=== PATIENT | male | born 2000 | race Caucasian/White ===

== ENCOUNTER 2023-08-09 09:33 | Day surgery (SDC) | payer OTHER, SELFPAY ==
[2023-08-09] VITALS (9 sets, daily range): BP systolic 136–163; BP diastolic 80–113; PULSE 59–95; RESP 18; TEMP 36.3–37.1; O2SAT 98–100; BMI 21.5
--- NOTE | 2023-08-09 09:45 | RAD_ITS ---
INDICATION: FX COMPARISON: None. FINDINGS: Multiple intraoperative fluoroscopic images of the proximal forearm Cumulative air kerma: 0.35 mGy RAD/Forearm 2 Views IMPRESSION: Fluoroscopic images submitted. See operative report for details. Electronically Signed: Michele Eastman MD at 6:40 EDT ,
[2023-08-09] MEDS: Lactated Ringers 1,000 ML 15 ML IV (10:07)
--- NOTE | 2023-08-09 10:44 | PCM.HP.STD ---
HPI - General HPI Narrative ALYCIA ARROYO, is a 22 M who presents for left ulna open reduction internal fixation. No changes to history and physical exam. Left forearm marked. Patient okay to proceed. Risks alternatives benefits postop plan as well as narcotic counseling given to the patient he understands. No further questions or concerns. MR#: [id number] Acct: [id number] Name: ALYCIA ARROYO Rep #: [id number] : 2000 Provider: Dr. Srikanth Rivers MD Age/Sex: 22/M Location: [facility] [place] Status: Signed Intake Vital Signs 08/06/2413:50 Height 5 ft 10 in Weight: 150 lb 2 oz BMI 21.5 Intake Visit Reasons: LEFT ARM Accompanied by: Self Is patient in pain?: Yes Pain scale (1-10): 5 Allergies No Known Allergies Allergy (Unverified 08/07/23 14:50) Medications acetaminophen 325 mg capsule 325 mg PO ONCE PRN 08/07/23 [History Confirmed 08/07/23] [facility] Medical History (Updated 08/07/23 @ 15:17 by Srikanth Rivers MD) Finger fracture, right Fracture of left proximal ulna Social History Smoking Status: Never smoker alcohol intake: never HPI LEFT ARM Details: This documentation accurately reflects the service provided and the decisions made by me, Dr. Srikanth Rivers MD 08/07/23 2008. Part of today?s visit was documented by [ ], acting as scribe. ALYCIA ARROYO is a 22 year old M here today for left proximal ulna fracture. RHD. Left elbow injury, stepped on by a bull 3 days ago. [employer] competition. no prior injuries. no numbness in the hand. given a sling and splint. add on for this afternoon called at 12pm. Ortho Exam General General: Yes no acute distress Neurologic: Yes alert and Yes oriented x3 Psychologic: Yes reasonable and appropriate Left Wrist/Hand Motor: EPL: 5, FDP-2: 5, 1st Dorsal Interosseous: 5 and APB: 5 Sensation: Radial: I, Ulnar: I and Median: I Left Elbow Skin/Wound: Yes CDI, Yes healing, Yes wound(s) cleaned with betadine/alcohol and sterile water, Yes wound(s) manually debrided then Saline/Betadine/, No eccymosis, No erythema and Yes Swelling Test: No TTP Medial Epicondyle, No TTP Lateral Epicondyle, No Thenar Atrophy and No Hypothenar Atrophy ROM: Yes TTP Fracture Site Sensation: Radial: I, Ulnar: I and Median: I ELBOW: There is a superficial abrasion on the dorsum lateral side of the forearm at the proximal end. 1x4 There is no evidence of an open fracture of the forearm compartment slightly swollen but soft overall no pain with passive stretch no pain at the distal radial ulnar joint. The joint is stable. No pain in the hand or wrist. Supplemental Info There is a proximal one third ulna fracture looks extra-articular. There is some apex volar angulation. The radiocapitellar joint appears to be congruent but these are not dedicated elbow films. There does not appear to be any associated other injuries. There is some mild comminution at the fracture site and it is relatively transverse. Coding Level of Care Code Off vis,new,level 4 Diagnoses Fracture of left proximal ulna S52.002A Assessment and Plan Assessment and Plan (1) Fracture of left proximal ulna: Status: Acute Plan: 30-year-old man with a proximal one third ulna fracture with apex volar angulation. In this setting young active healthy individual the 2 options 1 would be leaving this alone nonoperative management although this may lead to dysfunction at the radiocapitellar joint. Although this does not look like a Monteggia fracture my overall sense that this would do better with open reduction internal fixation to lead to more anatomic reduction of the forearm and quicker recovery. We discussed the pros and cons risks and benefits of each method of treatment nonoperative versus open reduction internal fixation of the surgery most likely with the plate and screws at the subcutaneous border the ulna. Patient would like to go ahead with surgery for now I cleaned the abrasion wrapped this back I placed him into a splint and we will try to get him on the surgery schedule soon as possible. He is otherwise healthy and does not need clearance. I booked and consented the patient for left ulna open reduction internal fixation. Pros and cons risks and benefits were discussed with the patient including but not limited to infection, pain, stiffness, bleeding, damage to surrounding structures, neurovascular injury, recurrence or retear, failure or wear of hardware or fixation, instability, fracture, deep vein thrombosis and pulmonary embolism, anesthetic risks, , patient dissatisfaction, need for further surgery and other risks. Patient understood and wished to proceed with surgery, and signed the informed consent documentation. [facility] Medical History Finger fracture, right Fracture of left proximal ulna Home Medications acetaminophen 325 mg capsule 325 mg PO ONCE PRN 08/07/23 [History Last Taken Unknown] oxycodone-acetaminophen 5 mg-325 mg tablet 1 tab PO Q6H PRN pain 08/09/23 [History Last Taken 08/08/23 00:00] Allergy/AdvReac Type Severity Reaction Status Date / Time No Known Allergies Allergy Unverified 08/07/23 14:50 Family History no significant family his Social History Smoking Status: Never smoker alcohol intake: never Vital Signs Vital Signs Vital Signs: 08/09/23 10:10 08/09/23 10:10 Temperature 97.8 F Temperature Source Temporal Pulse Rate 70 Respiratory Rate 18 Respiratory Pattern Normal Blood Pressure 136/80 H Blood Pressure Mean 98 Blood Pressure Source Monitor Blood Pressure Position Semi-Fowlers Blood Pressure Location Right Arm Pulse Ox 100 Oxygen Delivery Method Room Air Weight Weight: 150 lb Body Mass Index (BMI) 21.5
[2023-08-09] MEDS: Cefazolin 2 GM in 0.9% Normal Saline (100mL Bag) 100 ML IV (11:18)
[2023-08-09] MEDS: Bupivacaine 0.25% 30 ML Vial (12:03)
--- NOTE | 2023-08-09 12:07 | OP.PCM_ITS ---
Problems Associated Problem List Diagnoses (1) Fracture of left proximal ulna: Report of Operation Date of Procedure: 08/09/23 Pre-Operative Diagnosis: Left proximal ulnar fracture Post-Operative Diagnosis: Same Surgery/Procedure Performed:: Left proximal ulna open reduction internal fixation Surgeon: Srikanth Rivers Type of Anesthesia: General and Local Anesthesiologist: Nain Eddy Estimated Blood Loss (mL): 50 Description of Procedure: Patient brought the operating room theater. Placed supine on the table. General anesthesia induced. 2 g IV Ancef administered prior to start procedure. Hand table to the patient's left side all bony prominences padded SCDs and legs tourniquet he applied to the left upper extremity properly padded upper extremity prepped and draped in the usual sterile fashion with chlorhexidine- based prep solution allowing over 3 minutes drying time prior to draping. Preoperative timeout performed to confirm the site patient and the surgery. Began by examining limb inflated the tourniquet to 250 mmHg. Made a standard incision over the proximal ulna at the subcutaneous border. Dissected down through skin and subcutaneous tissue to meticulous hemostasis. Developed the interval between the FCU and ECU muscle bellies. Achieved the dissection down t o the fracture site remove any interposed periosteum and fracture hematoma. Achieved preliminary reduction. This was more transverse fracture pattern with multiple interdigitating points. Achieved reduction appropriately using direct visualization along 3 cortices as well as with AP and lateral radiographs. I placed a Synthes LCDC plate 8 hole on the subcutaneous border the ulna. Achieved good reduction. I placed all 6 fully threaded cortical screws, leaving 2 empty at the fracture sit. I also used the lag by technique when drilling eccentrically in the distal screw holes to achieve compression across the fracture site. I took final radiographs AP lateral the fracture site as well as full range of motion of the elbow and lateral x-ray of the elbow to confirm appropriate reduction of the radiocapitellar joint, no DRUJ instability, full elbow ROM, no crepitus or instability. The reduction was stable and solid. Tourniquet let down wound thoroughly irrigated meticulous hemostasis achieved. Fascia split closed with #1 Vicryl suture subcutaneous tissue closed with 2-0 Vicryl suture and skin with samira. Skin cleaned with wet dry dressing 20 cc of quarter percent bupivacaine instilled around the incision sites. Skin cleaned with wet dry dressing followed application of Adaptic 4 x 4 gauze sterile cast padding and a ulnar gutter prefabricated fiberglass splint loosely wrapped with 4 inch Rommel wrap into the hand as requested by the patient. Case terminated patient woken up from a general anesthetic transferred off the operating table taken postanesthetic care unit in stable addition. All sponge and counts were correct no complications. CPT 44685 Complications none Admit VTE Documentation VTE Present on Admission: No VTE Mechan Device Prophylaxis: SCD's VTE Pharm Prophylaxis ordered?: No Reason prophylaxis not ordered:: Treatment Not Indicated Procedures Musculoskeletal [id number]-29xxx: Other Procedure See Report
--- NOTE | 2023-08-09 12:15 | DCINST_ITS ---
Discharge Instructions Diet Discharge Diet: No restrictions Activity May resume sexual activity in: No Restrictions Ice area for (Minutes): 10 Lifting Restrictions: no lifting over 1 pound Keep extremity elevated above heart level: Operative Extremity Additional Activity Instructions:: ok for finger and elbow ROM Dressing / Incision Call your doctor if your incision/area has: Continuous Slow Oozing, Sudden Increased Bleeding, Increased Pain/ Swelling, Increased Redness, Foul Smelling Discharge and Swelling at the incision site Change Dressing in: leave in place till F/U Cleanse incision/area with: Do not get Incision Wet Follow Up Care Please Follow Up With: Srikanth Rivers MD When: 5 days or 2 weeks per patient preference Test Results: Test results from this visit will be discussed in further detail at your follow- up appointment, if applicable. Discharge Plan Admission Attending Provider: Srikanth Rivers Primary Care Provider: Care Physician,Margie Primary Discharge Orders/Prescriptions Prescriptions: New oxycodone-acetaminophen [Endocet] 5-325 mg tablet 1 tab PO Q4H MDD 6 PRN (Reason: pain) 5 Days Qty: 20 0RF No Action acetaminophen 325 mg capsule 325 mg PO ONCE PRN oxycodone-acetaminophen 5-325 mg tablet 1 tab PO Q6H PRN (Reason: pain) Referrals / Follow Up: Srikanth Rivers MD [Med Staff - Active Staff] - Care Physician,No Primary [Primary Care Provider] - Disposition Disposition (needs filled in before D/C Order can be placed): Home, Self Care
[2023-08-09] MEDS: Oxycodone/Apap 5/325 Tablet PO (13:51)
== END 2023-08-09 14:23 | disposition home or self-care (01) ==
LOC: SDC 09:35 → AC 09:37
PROVIDERS: Referring Provider Orthopaedic Surgery Sports Medicine; Visit Provider Orthopaedic Surgery Sports Medicine
PROC: (CPT 24685; principal; 2023-08-09 10:25)
DX: S52.002A Unspecified fracture of upper end of left ulna, initial encounter for closed fracture (principal); W55.89XA Other contact with other mammals, initial encounter
CPT/HCPCS: 24685; 01740; 73090; 76000; C1713; J7120; J2405